=== PATIENT | female | born 1980 | race Two or more races ===

== ENCOUNTER 2023-08-07 10:25 | Emergency (ER) | payer OTHER ==
[~2023-08-07] VITALS: Ht 160 cm; Wt 59.0 kg
[2023-08-07 11:16] LABS: Basophils # (auto) 0 10 ^3/uL (0-0.2); Basophils % (auto) 0.1 % (0.0-2.0); Eosinophils # (auto) 0 10 ^3/uL (0-0.8); Eosinophils % (auto) 0.2 % (0.0-7.0); Hematocrit 29.9 % (36.0-46.0); Hemoglobin 9.6 g/dL (12.2-16.2); Lymphocytes # (auto) 1.2 10 ^3/uL (0.4-5.4); Lymphocytes % (auto) 5.6 % (10.0-50.0); Mean Corpuscular Hgb Conc. 32.1 g/dL (32.0-36.0); Mean Corpuscular Volume 90.2 fL (80.0-100.0); Monocytes # (auto) 0.9 10 ^3/uL (0-1.3); Monocytes % (auto) 4.5 % (0.0-12.0); Neutrophils # (auto) 18.8 10 ^3/uL (1.6-8.6); Neutrophils % (auto) 89.6 % (37.0-80.0); Red Blood Cells 3.31 10^6/uL (4.0-5.20); Red Cell Distribution Width 15.8 % (11.8-14.3)
[2023-08-07 11:30] VITALS: PULSE 85; RESP 19; O2SAT 99
[2023-08-07 11:30] LABS: Chloride 105 mmol/L (98-107); Potassium 3.2 mmol/L (3.5-5.1); Sodium 137 mmol/L (136-145)
[2023-08-07 11:31] LABS: Anion Gap 7 (5-15); Calcium 9.6 mg/dL (8.5-10.1); Carbon Dioxide 25 mmol/L (20-30)
[2023-08-07 11:36] LABS: BUN/Creatinine Ratio 9.3 (10.0-20.0); Blood Urea Nitrogen 5 mg/dL (9-23); Glucose 105 mg/dL (74-106)
[2023-08-07] MEDS: SODIUM CHLORIDE 0.9% 1,000 ML IV ONE ×2 (11:37→14:12)
[2023-08-07] MEDS: ONDANSETRON HCL 4 MG/2 ML VIAL IV ONE (11:38)
[2023-08-07] MEDS: MORPHINE SULFATE 4 MG/ML SYR/VIAL IV ONE (11:38)
[2023-08-07 11:39] LABS: Urine Bacteria FEW /hpf (None Seen); Urine Blood 2+ /uL (Negative); Urine Clarity Turbid (Clear); Urine Color Yellow (Yellow); Urine Mucus FEW (None Seen); Urine Protein, UAD 1+ (Negative); Urine Specific Gravity 1.028 (1.001-1.035); Urine Urobilinogen 2 mg/dL (Negative); Urine WBC 26 /hpf (0 - 5)
[2023-08-07 11:45] VITALS: O2SAT 94
[2023-08-07 12:08] VITALS: BP 109/61; PULSE 78; RESP 16
[2023-08-07] MEDS: cefTRIAXone 1GM/50ML D5W 50 ML IV ONE (14:12)
[2023-08-07] MEDS: metroNIDAZOLE 500MG/100ML 100 ML IV ONE (14:13)
== END 2023-08-07 17:06 | disposition left against medical advice (07) ==
LOC: ER 10:25
DX: A41.9 Sepsis, unspecified organism (principal); N39.0 Urinary tract infection, site not specified; Z98.890 Other specified postprocedural states; Z88.8 Allergy status to other drugs, medicaments and biological substances
CPT/HCPCS: 36415; 74176; 80048; 81001; 83605; 85025; 87040; 87086; 96361; 96365; 96368; 96375; 99285; J0696; J2270; J2405; J3490; J7030